=== PATIENT | female | born 1975 | race African-American/Black ===

== ENCOUNTER 2020-11-22 08:33 | Emergency (ER) | payer OTHER ==
[~2020-11-22] VITALS: Ht 167.6 cm; Wt 81.6 kg
[2020-11-22] MEDS ORDERED: LISINOPRIL5 MG PO (09:16)
[2020-11-22] MEDS ORDERED: CLONIDINE HCL 0.1 MG TAB ONE (09:24)
[2020-11-22] MEDS ORDERED: CLONIDINE HCL 0.1 MG TAB PO ONE (09:30)
== END 2020-11-22 09:30 | disposition home or self-care (01) ==
LOC: FSED 08:36
DX: I10 Essential (primary) hypertension (principal)
CPT/HCPCS: 99283

== ENCOUNTER 2021-02-13 17:14 | Emergency (ER) | payer OTHER ==
[~2021-02-13] VITALS: Ht 154.9 cm; Wt 81.6 kg
[~2021-02-13 17:14] MED LIST: LISINOPRIL5 MG PO
[2021-02-13] MEDS ORDERED: NEOMYCIN-POLYMY10 M1 OT (18:31)
[2021-02-13 18:45] VITALS: BP 175/116
== END 2021-02-13 18:45 | disposition home or self-care (01) ==
LOC: FSED 17:18
DX: H60.91 Unspecified otitis externa, right ear (principal); I10 Essential (primary) hypertension
CPT/HCPCS: 99282